=== PATIENT | male | born 2000 | race African-American/Black ===

== ENCOUNTER 2024-07-01 11:53 | Emergency (ER) | payer BC ==
[~2024-07-01] VITALS: Ht 180.3 cm; Wt 68.0 kg
[2024-07-01 13:41] VITALS: BP 120/84; TEMP 98.9; O2SAT 98
== END 2024-07-01 13:43 | disposition home or self-care (01) ==
LOC: ER 11:59
DX: R00.2 Palpitations (principal); R07.89 Other chest pain
CPT/HCPCS: 71045-TC

== ENCOUNTER 2024-09-01 20:06 | Emergency (ER) | payer BC ==
[~2024-09-01] VITALS: Ht 177.8 cm; Wt 65.8 kg
[2024-09-01 20:10] VITALS: BP 134/80; TEMP 100.2; O2SAT 97
== END 2024-09-01 20:43 | disposition left against medical advice (07) ==
LOC: ER 20:08
DX: Z00.00 Encounter for general adult medical examination without abnormal findings (principal); Z53.21 Procedure and treatment not carried out due to patient leaving prior to being seen by health care provider